=== PATIENT | female | born 1970 | race Caucasian/White ===

== ENCOUNTER 2020-09-13 08:02 | Inpatient (IN) | payer MEDICAID ==
[~2020-09-13] VITALS: Ht 175.3 cm; Wt 121.0 kg
[2020-09-13] MEDS ORDERED: PIPERACILLIN-TAZOB 3.375GM 100 ML IV ONE (08:45)
[2020-09-13] MEDS ORDERED: KETOROLAC TROMETH 30 MG/ML 1ML VIAL IV ONE (08:45)
[2020-09-13] MEDS ORDERED: SODIUM CHLORIDE 0.9% 1,000 ML IV ONE ×2 (08:45)
[2020-09-13 10:34] LABS: Basophils # (auto) 0.2 10 ^3/uL (0-0.2); Basophils % (auto) 0.7 % (0.0-2.0); Eosinophils # (auto) 0 10 ^3/uL (0-0.8); Hematocrit 46.6 % (36.0-46.0); Hemoglobin 15.2 g/dL (12.2-16.2); Lymphocytes # (auto) 0.6 10 ^3/uL (0.4-5.4); Lymphocytes % (auto) 2.7 % (10.0-50.0); Mean Corpuscular Hemoglobin 27.9 pg (28.0-32.0); Mean Corpuscular Hgb Conc. 32.7 g/dL (32.0-36.0); Mean Corpuscular Volume 85.2 fL (80.0-100.0); Monocytes # (auto) 1.2 10 ^3/uL (0-1.3); Monocytes % (auto) 5.5 % (0.0-12.0); Neutrophils # (auto) 19.2 10 ^3/uL (1.6-8.6); Neutrophils % (auto) 91.1 % (37.0-80.0); Nucleated Red Blood Cells % 0.2 %; Platelet Count (auto) 236 10^3/uL (140-450); Red Blood Cells 5.47 10^6/uL (4.0-5.20); Red Cell Distribution Width 16.4 % (11.8-14.3); White Blood Cell 21.1 10^3/uL (4.4-10.8)
[2020-09-13 10:54] LABS: Albumin 3.3 g/dL (3.4-5.0); Potassium 3.7 mmol/L (3.5-5.1)
[2020-09-13 10:59] LABS: BUN/Creatinine Ratio 10.7; Bilirubin, Total 1.9 mg/dL (0.2-1.0); Total Protein 7.6 g/dL (6.4-8.2)
[2020-09-13 11:17] LABS: Lactic Acid w/Reflex 2.8 mmol/L (0.4-2.0)
[2020-09-13] MEDS ORDERED: ACETAMINOPHEN 500 MG TAB PO ONE (11:45)
[2020-09-13 12:27] LABS: Urine Amorphous Crystal FEW /hpf (None Seen); Urine Bacteria NONE SEEN /hpf (None Seen); Urine Blood TRACE /uL (Negative); Urine Hyaline Cast FEW /lpf (0 - 2); Urine Mucus FEW (None Seen); Urine Specific Gravity 1.025 (1.001-1.035); Urine WBC 4 /hpf (0 - 5)
[2020-09-13] MEDS ORDERED: MORPHINE SULF INJ 2 MG/ML SYRINGE 1ML IV ONE (12:30)
[2020-09-13] MEDS ORDERED: VANCOMYCIN 1GM/250ML 250 ML IV ONE (12:30)
[2020-09-13] MEDS ORDERED: MORPHINE SULF INJ 2 MG/ML SYRINGE 1ML IV PRN (15:00)
[2020-09-13] MEDS ORDERED: DEXTROSE (50%) 50ML SYRG IV PRN (15:00)
[2020-09-13] MEDS ORDERED: MORPHINE SULF INJ 2 MG/ML SYRINGE 1ML IM PRN (15:00)
[2020-09-13] MEDS ORDERED: NITROGLYCERIN 0.4 MG SL TAB SL PRN (15:00)
[2020-09-13] MEDS: ACETAMINOPHEN 325 MG TAB PO PRN (16:38)
--- NOTE | 2020-09-13 17:23 | NUR ---
Telemetry admit from ER LUIS BYRD admitted to Telemetry unit after SBAR received. Patient oriented to DAVIDA BEAVER, RN primary RN, TELE unit, room 217, bed A, and unit policies regarding patient care and visiting hours. Patient now on continuous telemetry monitoring, tele box # 37 and telemetry reading on arrival to unit is [facility]. Patient placed on bedside oxygen, weighed by bedscale and encouraged to call if they need something. All questions and concerns addressed, patient verbalized understanding.
[2020-09-13] MEDS: ACCU-CHEK COMFORT CURVE STRIP VI SCH ×2 (17:38→21:41)
[2020-09-13] MEDS: MORPHINE SULF INJ 2 MG/ML SYRINGE 1ML IV PRN (17:42)
--- NOTE | 2020-09-13 17:42 | NUR ---
WOUND PHOTOS OBTAINED.
[2020-09-13 17:48] VITALS: BP 130/71
[2020-09-13] MEDS: InsuLIN REG 1unit/0.01ml Soln (100units/ml) SC SCH ×2 (17:48→21:44)
[2020-09-13] MEDS: PIPERACILLIN-TAZOB 3.375GM 100 ML IV SCH ×2 (18:35→23:38)
[2020-09-13] MEDS ORDERED: CARI350T23 PO (18:47)
[2020-09-13] MEDS ORDERED: INSU100I2 SC (18:47)
[2020-09-13] MEDS ORDERED: POTA10TA75 PO (18:47)
[2020-09-13] MEDS ORDERED: ASPI-318 PO (18:47)
[2020-09-13] MEDS ORDERED: FURO40TA4 PO (18:47)
[2020-09-13] MEDS ORDERED: ISO60SRT PO (18:47)
[2020-09-13] MEDS ORDERED: AMLO5TAB15 PO (18:47)
[2020-09-13] MEDS ORDERED: INSU1INJ19 SC (18:47)
[2020-09-13] MEDS ORDERED: OMEP-260 PO (18:47)
[2020-09-13] MEDS ORDERED: MET25T PO (18:47)
[2020-09-13] MEDS ORDERED: ATOR40TA52 PO (18:47)
[2020-09-13] MEDS ORDERED: HYDR-4798 PO (18:47)
[2020-09-13] MEDS ORDERED: AMLO10TA13 PO (18:47)
[2020-09-13] MEDS ORDERED: CLOP75TA41 PO (18:47)
[2020-09-13] MEDS ORDERED: FERR-20 PO (18:47)
[2020-09-13] MEDS ORDERED: CHOL1TAB42 PO (18:47)
[2020-09-13] MEDS ORDERED: LISI-646 PO (18:47)
[2020-09-13] MEDS ORDERED: NITR0.4S29 SL (18:47)
[2020-09-13] MEDS ORDERED: GLYB5TAB8 PO (18:47)
[2020-09-13] MEDS: NICOTINE 14 MG/24HR TOPICAL PATCH TD SCH (19:01)
--- NOTE | 2020-09-13 19:01 | NUR ---
CARE ENDORSED TO NOC RN.
[2020-09-13 19:23] LABS: INR 1.18 (0.9-1.15); Partial Thromboplastin Time 32.4 sec (23.0-31.2)
--- NOTE | 2020-09-13 19:30 | NUR ---
Opening Shift Note Assumed care of patient, awake and alert. A&Ox4. Patient laying in bed. No S/S of distress/SOB or pain. Safety measures maintained by keeping the bed locked in lowest position, 2 side rails up, personal items and call light within reach. Instructed on POC and to call for assist PRN, will continue to monitor for changes Q1hr and PRN.
[2020-09-13 22:55] VITALS: BP 129/76
[2020-09-14] MEDS: MORPHINE SULF INJ 2 MG/ML SYRINGE 1ML IV PRN ×5 (02:31→22:25)
[2020-09-14 05:25] VITALS: BP 104/61
[2020-09-14] MEDS: PIPERACILLIN-TAZOB 3.375GM 100 ML IV SCH ×4 (06:10→23:52)
[2020-09-14] MEDS: InsuLIN REG 1unit/0.01ml Soln (100units/ml) SC SCH ×4 (06:26→22:20)
[2020-09-14] MEDS: ACCU-CHEK COMFORT CURVE STRIP VI SCH ×4 (06:26→22:19)
--- NOTE | 2020-09-14 07:25 | NUR ---
Opening Shift Note Assumed care of patient, awake and alert. No S/S of distress/SOB or pain. Instructed on POC and to call for assistance PRN bed is locked and in lowest position bed rails up x2 , sitter is at bed side and call light is with in reach , will continue to monitor for changes Q1hr and PRN..
[2020-09-14 07:29] LABS: Basophils # (auto) 0.1 10 ^3/uL (0-0.2); Basophils % (auto) 0.6 % (0.0-2.0); Eosinophils # (auto) 0 10 ^3/uL (0-0.8); Eosinophils % (auto) 0.2 % (0.0-7.0); Hematocrit 38.6 % (36.0-46.0); Hemoglobin 12.8 g/dL (12.2-16.2); Lymphocytes # (auto) 0.7 10 ^3/uL (0.4-5.4); Lymphocytes % (auto) 4.6 % (10.0-50.0); Mean Corpuscular Hemoglobin 28.4 pg (28.0-32.0); Mean Corpuscular Hgb Conc. 33.2 g/dL (32.0-36.0); Mean Corpuscular Volume 85.6 fL (80.0-100.0); Monocytes # (auto) 0.8 10 ^3/uL (0-1.3); Monocytes % (auto) 5.3 % (0.0-12.0); Neutrophils # (auto) 13.8 10 ^3/uL (1.6-8.6); Neutrophils % (auto) 89.3 % (37.0-80.0); Nucleated Red Blood Cells % 0.1 %; Platelet Count (auto) 186 10^3/uL (140-450); Red Cell Distribution Width 16.3 % (11.8-14.3); White Blood Cell 15.5 10^3/uL (4.4-10.8)
[2020-09-14 07:39] LABS: Calcium 7.6 mg/dL (8.5-10.1); Potassium 3.6 mmol/L (3.5-5.1)
[2020-09-14 07:43] LABS: Albumin 2.4 g/dL (3.4-5.0); BUN/Creatinine Ratio 18.1
[2020-09-14 07:45] LABS: Bilirubin, Total 1.6 mg/dL (0.2-1.0); Total Protein 6.8 g/dL (6.4-8.2)
[2020-09-14 08:51] VITALS: BP 132/72
[2020-09-14] MEDS: NICOTINE 14 MG/24HR TOPICAL PATCH TD SCH (10:00)
--- NOTE | 2020-09-14 10:56 | NUR ---
WOUND CARE NOTE: Wound care in to see patient per wound care request regarding wounds that are noted present on admission. Bedside nurse took photograph of patient's wounds upon admission for reference. Patient is 50 years old female with admitting diagnosis of Sepsis, Leg Wounds. Patient is resting in bed in Rm. 217A. Patient's eyes are closed but she answers questions. She's self turning and repositioning and her Eugenio score is 20. Patient came in with open full thickness wounds with no measurable depth to Rt lateral foot/ankle (2x1.5cm) and Lt 5th toe (1.5x1cm). Lt 5th toe wound is red with pink lorri wound, no drainage/odor noted. Rt lateral foot wound is red with yellow hyperkeratotic skin to periwound and bright red surrounding skin. Minimal serous drainage noted, no odor noted. Patient's Rt Lower leg noted edematous and erythremic. Marked Rt lower leg edematous and erythremic site with marker. On reports, patient has had the Rt foot wound with redness and pain to Rt lower leg for few days. Patient reported that she has not seen a doctor for her RLE issue as "I jut get approved". Cleansed patient's Rt lateral foot and Lt 5th toe wounds with wound cleanser, patted dry with gauze, applied Thera honey gel to open wound. Covered Rt lateral foot/ankle wound with small Opti foam gentle dressing. Covered L 5th toe wound with Band aid. Patient tolerated well and denies any other wound. Patient has active podiatry consult. Bed in low position, call chen within reach, all safety precautions in placed. RECOMMENDATION: Nursing to continue with EOD/PRN dressing change to Rt lateral foot/ankle and Lt 5th toe wounds per MD order,Podiatry consult, redistribute pressure points with pillows, elevate edematous extremity on pillows, continue monitoring by wound care while patient is hospitalized. Addendum: 09/14/20 at 1534 by Li Abellar RN Amended: Links added.
[2020-09-14] MEDS: VANCOMYCIN 1GM/250ML 250 ML IV SCH (11:14)
[2020-09-14] MEDS: ACETAMINOPHEN 325 MG TAB PO PRN ×2 (12:31→21:37)
[2020-09-14 13:00] VITALS: BP 130/76
[2020-09-14] MEDS ORDERED: INSULIN LANTUS (GLARGINE) 1 /0.01ml (100units/ml) SC SCH (15:30)
[2020-09-14 16:16] VITALS: BP 128/70
[2020-09-14] MEDS: PANTOPRAZOLE 40 MG/10 ML VIAL INJ IV SCH (17:37)
[2020-09-14] MEDS: ONDANSETRON HCL 4 MG/2 ML VIAL IV PRN (18:55)
--- NOTE | 2020-09-14 19:40 | NUR ---
Opening Shift Note Assumed care of patient. Patient sleeping in bed. No S/S of distress/SOB or pain. Safety measures maintained by keeping the bed locked in lowest position, 2 side rails up, personal items and call light within reach. Instructed on POC and to call for assist PRN, will continue to monitor for changes Q1hr and PRN.
[2020-09-14 22:00] VITALS: BP 154/88
[2020-09-14] MEDS: CLOTRIMAZOLE 1 % CREAM 15GM TOP SCH (22:19)
[2020-09-15] MEDS: MORPHINE SULF INJ 2 MG/ML SYRINGE 1ML IV PRN ×4 (03:59→20:46)
[2020-09-15 05:00] VITALS: BP 123/73
[2020-09-15] MEDS: PIPERACILLIN-TAZOB 3.375GM 100 ML IV SCH ×3 (05:42→17:06)
[2020-09-15] MEDS: ACCU-CHEK COMFORT CURVE STRIP VI SCH ×4 (06:21→22:00)
[2020-09-15] MEDS: InsuLIN REG 1unit/0.01ml Soln (100units/ml) SC SCH ×4 (06:26→22:28)
[2020-09-15 08:30] VITALS: BP 121/67
[2020-09-15] MEDS: PANTOPRAZOLE 40 MG/10 ML VIAL INJ IV SCH (09:34)
[2020-09-15] MEDS: VANCOMYCIN 1GM/250ML 250 ML IV SCH (09:34)
[2020-09-15] MEDS: CLOTRIMAZOLE 1 % CREAM 15GM TOP SCH ×2 (09:35→22:00)
[2020-09-15] MEDS ORDERED: CLOT1CRE56 TOP (09:55)
[2020-09-15] MEDS ORDERED: CARISOPRODOL 350 MG TAB PO PRN (10:00)
[2020-09-15] MEDS ORDERED: CLOPIDOGREL BISULFATE 75 MG TAB PO SCH (10:00)
[2020-09-15 10:05] LABS: BUN/Creatinine Ratio 16.7; Calcium 8.3 mg/dL (8.5-10.1); Potassium 3.7 mmol/L (3.5-5.1)
[2020-09-15] MEDS: NICOTINE 14 MG/24HR TOPICAL PATCH TD SCH (10:09)
[2020-09-15] MEDS ORDERED: CHOLECALCIFEROL (VITD3) 1,000UNIT=25mCg TAB PO ONE (10:30)
[2020-09-15] MEDS ORDERED: CLOPIDOGREL BISULFATE 75 MG TAB PO ONE (10:30)
[2020-09-15] MEDS ORDERED: FERROUS SULFATE 325 MG TAB PO ONE (10:30)
[2020-09-15 10:42] LABS: Basophils # (auto) 0 10 ^3/uL (0-0.2); Basophils % (auto) 0.4 % (0.0-2.0); Eosinophils # (auto) 0.1 10 ^3/uL (0-0.8); Eosinophils % (auto) 1.1 % (0.0-7.0); Hemoglobin 12.2 g/dL (12.2-16.2); Lymphocytes # (auto) 0.7 10 ^3/uL (0.4-5.4); Lymphocytes % (auto) 6.3 % (10.0-50.0); Mean Corpuscular Hemoglobin 27.8 pg (28.0-32.0); Mean Corpuscular Hgb Conc. 32.2 g/dL (32.0-36.0); Mean Corpuscular Volume 86.5 fL (80.0-100.0); Monocytes # (auto) 0.7 10 ^3/uL (0-1.3); Monocytes % (auto) 6.7 % (0.0-12.0); Neutrophils # (auto) 9.3 10 ^3/uL (1.6-8.6); Neutrophils % (auto) 85.5 % (37.0-80.0); Nucleated Red Blood Cells % 0.1 %; Platelet Count (auto) 174 10^3/uL (140-450); Red Blood Cells 4.39 10^6/uL (4.0-5.20); Red Cell Distribution Width 16.7 % (11.8-14.3); White Blood Cell 10.9 10^3/uL (4.4-10.8)
[2020-09-15] MEDS: METOPROLOL TARTRATE 25 MG TAB PO SCH ×2 (10:57→21:47)
[2020-09-15] MEDS: POTASSIUM CHL 10 Meq TABLET PO SCH (10:57)
[2020-09-15] MEDS: FUROSEMIDE 40 MG TAB PO SCH (10:57)
[2020-09-15] MEDS: INSULIN LANTUS (GLARGINE) 1 /0.01ml (100units/ml) SC SCH (11:44)
[2020-09-15 12:30] VITALS: BP 99/55
[2020-09-15] MEDS: HYDROcodone-ACET 10/325MG TAB PO PRN (13:32)
--- NOTE | 2020-09-15 14:45 | NUR ---
Cancelling MRI Crystal Harkins discussing POC with Dr. Buenrostro. Per Dr. Buenrostro, patient does not need MRI. Received orders to cancel both orders. Per Dr. Buenrostro, patient is cleared for discharge.
--- NOTE | 2020-09-15 16:30 | NUR ---
Infectious control consult Dr. Blount at bedside evaluating patient. No new orders received.
--- NOTE | 2020-09-15 16:45 | NUR ---
Evelina at bedside Dr. Ramesh at bedside evaluating patient. Per MD, he does not think patient needs surgery and is not concerned about compartment syndrome. No new orders received.
[2020-09-15 17:00] VITALS: BP 135/77
[2020-09-15] MEDS: ATORVASTATIN 20 MG TAB PO SCH (17:06)
[2020-09-15] MEDS ORDERED: LORazepam 2MG/ML-1ML VIAL IV ONE (17:30)
[2020-09-15] MEDS: ONDANSETRON HCL 4 MG/2 ML VIAL IV PRN (19:51)
[2020-09-15 22:00] VITALS: BP 138/79
--- NOTE | 2020-09-15 22:45 | NUR ---
CHEST PAIN PATIENT C/O CHEST PAIN ON THE LEFT SIDE. PATIENT WAS ASLEEP WHEN THE CHEST PAIN WOKE HER UP. I IMMEDIATELY DID AN EKG WHILE THE OCCASIONAL BABYSITTER GOT VITALS. I ADMINISTERED NITRO S.L. AFTER CHECKING IN 5 MINUTES THE PATIENT SAID HER PAIN WAS COMPLETELY GONE. I TRIED CALLING DR. CHAIDEZ AND REACHED DR. GUILLEN. HE REQUESTED I SEND HIM PICTURE OF THE EKG. I SENT IT AND HE REQUESTED I TAKE ANOTHER EKG NOW THAT THE PAIN HAS SUBSIDED. I ALSO SENT HIM THE NEW EKG. DR GUILLEN ORDERED TROPONINS STAT AND AGAIN IN [address] GUILLEN ORDERED A CONSULT WITH DR. GOODMAN AND AN ECHO FOR THE AM.
[2020-09-16 05:00] VITALS: BP 118/56
[2020-09-16] MEDS: ACCU-CHEK COMFORT CURVE STRIP VI SCH ×3 (06:20→18:13)
[2020-09-16] MEDS: InsuLIN REG 1unit/0.01ml Soln (100units/ml) SC SCH ×3 (06:23→18:14)
[2020-09-16] MEDS: HYDROcodone-ACET 10/325MG TAB PO PRN (06:27)
--- NOTE | 2020-09-16 06:36 | NUR ---
LOW O2 PATIENT INSISTED ON GOING OUTSIDE TO SMOKE. WHEN SHE RETURNED HER O2 WAS 91% NASAL CANNULA IS ON AT 3 Lt /MIN. PATIENT HAS RECEIVED NORCO FOR HEAD PAIN.AT THIS TIME PATIENT IS RESTING COMFORTABLY IN BED.
[2020-09-16 07:15] LABS: Basophils # (auto) 0.1 10 ^3/uL (0-0.2); Basophils % (auto) 0.7 % (0.0-2.0); Eosinophils # (auto) 0.1 10 ^3/uL (0-0.8); Eosinophils % (auto) 0.8 % (0.0-7.0); Hematocrit 39.2 % (36.0-46.0); Lymphocytes # (auto) 0.8 10 ^3/uL (0.4-5.4); Lymphocytes % (auto) 9.2 % (10.0-50.0); Mean Corpuscular Hemoglobin 28.7 pg (28.0-32.0); Mean Corpuscular Hgb Conc. 33.2 g/dL (32.0-36.0); Mean Corpuscular Volume 86.5 fL (80.0-100.0); Monocytes # (auto) 0.9 10 ^3/uL (0-1.3); Monocytes % (auto) 10.1 % (0.0-12.0); Neutrophils # (auto) 7.3 10 ^3/uL (1.6-8.6); Neutrophils % (auto) 79.2 % (37.0-80.0); Nucleated Red Blood Cells % 0.1 %; Platelet Count (auto) 209 10^3/uL (140-450); Red Blood Cells 4.53 10^6/uL (4.0-5.20); Red Cell Distribution Width 16.1 % (11.8-14.3); White Blood Cell 9.2 10^3/uL (4.4-10.8)
--- NOTE | 2020-09-16 07:20 | NUR ---
Opening Shift Note Assumed care of patient AOx4. Patient laying in bed. No S/S of distress/SOB or pain. Safety measures maintained by keeping the bed locked in lowest position, 2 side rails up, personal items and call light within reach. Instructed on POC and to call for assist PRN, will continue to monitor for changes Q1hr and PRN.
[2020-09-16 07:37] LABS: Chloride 95 mmol/L (98-107); Potassium 4.5 mmol/L (3.5-5.1); Sodium 131 mmol/L (136-145)
[2020-09-16 07:55] LABS: Anion Gap 8 (5-15); Blood Urea Nitrogen 16 mg/dL (7-18); Calcium 9.3 mg/dL (8.5-10.1); Carbon Dioxide 28 mmol/L (21-32); GFR African American 98 mL/min; GFR Non-African American 81 mL/min; Glucose 229 mg/dL (74-106)
[2020-09-16] MEDS ORDERED: FERROUS SULFATE 325 MG TAB PO SCH (08:00)
[2020-09-16 09:00] VITALS: BP 139/82
[2020-09-16] MEDS: FUROSEMIDE 40 MG TAB PO SCH (09:36)
[2020-09-16] MEDS: POTASSIUM CHL 10 Meq TABLET PO SCH (09:37)
[2020-09-16] MEDS: VANCOMYCIN 1GM/250ML 250 ML IV SCH (09:37)
[2020-09-16] MEDS: PANTOPRAZOLE 40 MG/10 ML VIAL INJ IV SCH (09:37)
[2020-09-16] MEDS: METOPROLOL TARTRATE 25 MG TAB PO SCH (09:37)
[2020-09-16] MEDS: NICOTINE 14 MG/24HR TOPICAL PATCH TD SCH (09:40)
[2020-09-16] MEDS: CLOTRIMAZOLE 1 % CREAM 15GM TOP SCH (10:00)
[2020-09-16] MEDS ORDERED: CHOLECALCIFEROL (VITD3) 1,000UNIT=25mCg TAB PO SCH (10:00)
[2020-09-16] MEDS ORDERED: CLOPIDOGREL BISULFATE 75 MG TAB PO SCH (10:00)
[2020-09-16] MEDS: INSULIN LANTUS (GLARGINE) 1 /0.01ml (100units/ml) SC SCH (10:04)
--- NOTE | 2020-09-16 10:35 | NUR ---
Assessment Patient is a 50-year-old female who is alert and oriented. Prior to [place] [address] and functioned with assistance. Per patient she has a walker for home use. Per patient she will return home to her prior living arrangements post discharge and [facility] will transport her home. Per patient she feels safe returning home. Advised patient there is a social service consult to resume home health with [facility] for wound care. Patient would like to resume care with [facility]. Clinical information was faxed to [facility] and [facility]. Per Maurice with [facility] they will continue seeing patient within 24-48hrs upon d/c day. Obtain authorization from [facility] [id number]. Informed patient she has the right to participate in all discharge planning. Patient verbalized understanding and agreed to discharge plan. Addendum: 09/16/20 at 1042 by CASSY WILLOUGHBY Amended: Links added.
--- NOTE | 2020-09-16 11:31 | NUR ---
Nutrition Assessment Est Energy needs 6083-7412 kcal (11-14 kcal/kg BW 121kg) Est protein needs 66-79g (1-1.2g/kg IBW 66kg) Will reassess prn Addendum: 09/16/[address] Amended: Links added.
[2020-09-16] MEDS: MORPHINE SULF INJ 2 MG/ML SYRINGE 1ML IV PRN (11:39)
[2020-09-16 12:26] VITALS: BP 102/58
--- NOTE | 2020-09-16 16:22 | NUR ---
D/C Planning Per social service consult for transportation. Faxed transportation form request to [facility] requesting for a 6:30pm via [employer]. Transportation has been arranged with [employer] .
--- NOTE | 2020-09-16 16:45 | NUR ---
Balderas catheter DC'd Patient getting discharged today. Balderas DC'd with clean technique following deflation of balloon. Patient tolerated well with no complaints of pain. Continue care.
[2020-09-16 16:53] VITALS: BP 102/58
[2020-09-16 17:02] VITALS: BP 124/67
[2020-09-16] MEDS ORDERED: VANCOMYCIN 1GM/250ML 250 ML IV SCH (18:00)
[2020-09-16] MEDS: ATORVASTATIN 20 MG TAB PO SCH (18:32)
--- NOTE | 2020-09-16 18:38 | NUR ---
Wound care/ DC pictures taken Wound care performed per MD orders at this time and DC wound pictures taken. Patient tolerated well.
--- NOTE | 2020-09-16 18:50 | NUR ---
DISCHARGE Discharge instructions given as ordered. Encourage to follow up with PMD as instructed. Appointment information provided to patient. All questions and concerns addressed. Patient verbalized understanding. IV removed with catheter intact, pressure dressing applied. Telemetry unit returned to ICU. Patient transported home by [address] [employer] [facility]. No distress noted at time of departure.
== END 2020-09-16 18:50 | disposition home health service (06) | DRG 720 ==
LOC: EDBD 08:02 → ER 08:02 → TELE 08:03 → TELE-CENTR 17:34
PROVIDERS: ADMIT Internal Medicine; ATTEND Internal Medicine
DX: A41.9 Sepsis, unspecified organism (principal); I10 Essential (primary) hypertension; E86.0 Dehydration; B95.8 Unspecified staphylococcus as the cause of diseases classified elsewhere; E11.621 Type 2 diabetes mellitus with foot ulcer; B95.1 Streptococcus, group B, as the cause of diseases classified elsewhere; E66.01 Morbid (severe) obesity due to excess calories; F17.210 Nicotine dependence, cigarettes, uncomplicated; G89.29 Other chronic pain; L97.519 Non-pressure chronic ulcer of other part of right foot with unspecified severity; L03.115 Cellulitis of right lower limb; I25.10 Atherosclerotic heart disease of native coronary artery without angina pectoris; J96.11 Chronic respiratory failure with hypoxia; L97.529 Non-pressure chronic ulcer of other part of left foot with unspecified severity; Z68.39 Body mass index [BMI] 39.0-39.9, adult; Z79.4 Long term (current) use of insulin; Z82.49 Family history of ischemic heart disease and other diseases of the circulatory system; Z86.73 Personal history of transient ischemic attack (TIA), and cerebral infarction without residual deficits; Z83.3 Family history of diabetes mellitus; B35.3 Tinea pedis
CPT/HCPCS: 36415; 51702; 71045; 73610; 73630; 73718; 80048; 80053; 80202; 81001; 82962; 83036; 83605; 84484; 85025; 85610; 85730; 87040; 87077; 87186; 87205; 93005; 93926; 93971; 96361; 96365; 96367; 96375; C9113; G0378; J1815; J1885; J2405; J2543

== ENCOUNTER 2020-10-02 21:47 | Inpatient (IN) | payer MEDICAID ==
[~2020-10-02] VITALS: Ht 175.3 cm; Wt 115.8 kg
[~2020-10-02 21:47] MED LIST: AMLO10TA13 PO; ASPI-318 PO; ATOR40TA52 PO; CARI350T23 PO; CHOL1TAB42 PO; CLOP75TA41 PO; CLOT1CRE56 TOP; FERR-20 PO; FURO40TA4 PO; GLYB5TAB8 PO; HYDR-4798 PO; INSU100I2 SC; INSU1INJ19 SC; ISO60SRT PO; LISI-646 PO; MET25T PO; NITR0.4S29 SL; OMEP-260 PO; POTA10TA75 PO
[2020-10-02 23:34] LABS: Alanine Aminotransferase 22 U/L (13-56); Albumin 3.2 g/dL (3.4-5.0); Anion Gap 7 (5-15); Aspartate Aminotransferase 21 U/L (15-37); BUN/Creatinine Ratio 14.9; Basophils # (auto) 0.1 10 ^3/uL (0-0.2); Basophils % (auto) 1.2 % (0.0-2.0); Blood Urea Nitrogen 13 mg/dL (7-18); Calcium 9.3 mg/dL (8.5-10.1); Carbon Dioxide 28 mmol/L (21-32); Chloride 94 mmol/L (98-107); Eosinophils # (auto) 0.2 10 ^3/uL (0-0.8); Eosinophils % (auto) 1.7 % (0.0-7.0); GFR African American 89 mL/min; GFR Non-African American 73 mL/min; Glucose 320 mg/dL (74-106); Hematocrit 43.9 % (36.0-46.0); Hemoglobin 14.4 g/dL (12.2-16.2); Lymphocytes # (auto) 1.5 10 ^3/uL (0.4-5.4); Lymphocytes % (auto) 14.7 % (10.0-50.0); Mean Corpuscular Hemoglobin 27.1 pg (28.0-32.0); Mean Corpuscular Hgb Conc. 32.7 g/dL (32.0-36.0); Mean Corpuscular Volume 82.9 fL (80.0-100.0); Monocytes # (auto) 0.8 10 ^3/uL (0-1.3); Monocytes % (auto) 7.6 % (0.0-12.0); Neutrophils # (auto) 7.5 10 ^3/uL (1.6-8.6); Neutrophils % (auto) 74.8 % (37.0-80.0); Nucleated Red Blood Cells % 0.3 %; Platelet Count (auto) 496 10^3/uL (140-450); Potassium 4.6 mmol/L (3.5-5.1); Red Blood Cells 5.29 10^6/uL (4.0-5.20); Red Cell Distribution Width 15.3 % (11.8-14.3); Sodium 129 mmol/L (136-145)
[2020-10-02 23:37] LABS: Alkaline Phosphatase 209 U/L (45-117); Bilirubin, Total 0.4 mg/dL (0.2-1.0); Total Protein 9.3 g/dL (6.4-8.2)
[2020-10-03] MEDS ORDERED: MORPHINE SULFATE 4 MG/ML SYR/VIAL IV ONE (00:15)
[2020-10-03] MEDS ORDERED: ONDANSETRON HCL 4 MG/2 ML VIAL IV ONE (00:15)
[2020-10-03] MEDS ORDERED: cefTRIAXone 1GM/50ML D5W 50 ML IV ONE (00:15)
[2020-10-03] MEDS ORDERED: CLINDAMYCIN 900MG IV 50 ML IV ONE (00:15)
[2020-10-03 01:12] LABS: Lactic Acid w/Reflex 2.4 mmol/L (0.4-2.0)
[2020-10-03] MEDS: SODIUM CHLORIDE 0.9% 1,000 ML IV SCH ×3 (02:00→22:39)
[2020-10-03] MEDS ORDERED: NITROGLYCERIN 0.4 MG SL TAB SL PRN (02:00)
[2020-10-03] MEDS ORDERED: DEXTROSE (50%) 50ML SYRG IV ONE ×2 (02:00→02:45)
[2020-10-03] MEDS ORDERED: DEXTROSE (50%) 50ML SYRG IV PRN ×3 (02:30→12:15)
[2020-10-03] MEDS: CLINDAMYCIN 900MG IV 50 ML IV SCH ×3 (06:00→22:39)
[2020-10-03 06:39] LABS: Basophils # (auto) 0.1 10 ^3/uL (0-0.2); Eosinophils # (auto) 0.2 10 ^3/uL (0-0.8); Lymphocytes # (auto) 1.2 10 ^3/uL (0.4-5.4); Monocytes # (auto) 0.6 10 ^3/uL (0-1.3); Red Cell Distribution Width 15.7 % (11.8-14.3)
[2020-10-03 06:41] LABS: Basophils % (auto) 1.5 % (0.0-2.0); Eosinophils % (auto) 2.9 % (0.0-7.0); Hematocrit 38.5 % (36.0-46.0); Hemoglobin 12.7 g/dL (12.2-16.2); Lymphocytes % (auto) 19.9 % (10.0-50.0); Mean Corpuscular Hemoglobin 27.6 pg (28.0-32.0); Mean Corpuscular Hgb Conc. 33.1 g/dL (32.0-36.0); Mean Corpuscular Volume 83.5 fL (80.0-100.0); Monocytes % (auto) 10.1 % (0.0-12.0); Neutrophils # (auto) 4.1 10 ^3/uL (1.6-8.6); Neutrophils % (auto) 65.6 % (37.0-80.0); Platelet Count (auto) 455 10^3/uL (140-450); Red Blood Cells 4.61 10^6/uL (4.0-5.20); White Blood Cell 6.3 10^3/uL (4.4-10.8)
[2020-10-03 06:51] LABS: Albumin 2.4 g/dL (3.4-5.0); Calcium 8.6 mg/dL (8.5-10.1); Potassium 3.9 mmol/L (3.5-5.1)
[2020-10-03] MEDS ORDERED: ACCU-CHEK COMFORT CURVE STRIP VI ONE (07:00)
[2020-10-03] MEDS ORDERED: InsuLIN REG 1unit/0.01ml Soln (100units/ml) SC ONE (07:00)
[2020-10-03 07:13] LABS: BUN/Creatinine Ratio 17.5; Bilirubin, Total 0.3 mg/dL (0.2-1.0); CRP High Sensitivity 2.3 mg/dL (< 0.3); Total Protein 7.4 g/dL (6.4-8.2)
[2020-10-03 08:14] LABS: Urine Bacteria FEW /hpf (None Seen); Urine Blood TRACE /uL (Negative); Urine Mucus FEW (None Seen); Urine WBC 173 /hpf (0 - 5); Urine WBC Clumps PRESENT /hpf (None Seen)
[2020-10-03 08:30] VITALS: BP 152/91
[2020-10-03] MEDS: ENOXAPARIN SOD 40 MG/0.4 ML SYRINGE SC SCH (10:00)
[2020-10-03] MEDS: levoFLOXacin 500MG 100 ML IV SCH (10:17)
[2020-10-03] MEDS ORDERED: HYDROcodone-ACET 5/325MG TAB PO PRN (11:00)
[2020-10-03] MEDS ORDERED: PROMETHAZINE HCL 25 MG/ML 1ML IV PRN (11:00)
[2020-10-03] MEDS ORDERED: ACETAMINOPHEN 325 MG TAB PO PRN (11:00)
[2020-10-03] MEDS: MORPHINE SULF INJ 2 MG/ML SYRINGE 1ML IV PRN ×3 (11:44→22:41)
[2020-10-03 11:47] LABS: Alcohol, Urine < 3.0 mg/dL (0-10); Amphetamine Screen, Urine POSITIVE (NEGATIVE); Barbiturate Scree,Urine NEGATIVE (NEGATIVE); Benzodiazephine Screen, Urine NEGATIVE (NEGATIVE); Cannabinoid Screen, Urine NEGATIVE (NEGATIVE); Cocaine Screen, Urine NEGATIVE (NEGATIVE); Opiate Scree,Urine POSITIVE (NEGATIVE); Phencyclidine Screen, Urine NEGATIVE (NEGATIVE)
[2020-10-03 12:00] VITALS: BP 152/90
[2020-10-03] MEDS ORDERED: CARISOPRODOL 350 MG TAB PO PRN (12:00)
[2020-10-03] MEDS ORDERED: ASPirin-EC 81 mg tab PO SCH (12:15)
[2020-10-03] MEDS ORDERED: POTASSIUM CHL 10 Meq TABLET PO ONE (12:15)
[2020-10-03] MEDS ORDERED: FUROSEMIDE 40 MG TAB PO ONE (12:15)
[2020-10-03] MEDS ORDERED: CLOPIDOGREL BISULFATE 75 MG TAB PO ONE (12:15)
[2020-10-03] MEDS ORDERED: FAMOTIDINE 20 MG TAB PO ONE (12:15)
[2020-10-03] MEDS ORDERED: LISINOPRIL 20 MG TAB PO ONE (12:15)
[2020-10-03] MEDS ORDERED: OMEPRAZOLE 20MG/10ML ORAL SUSP PO ONE (12:15)
[2020-10-03] MEDS ORDERED: METOPROLOL TARTRATE 25 MG TAB PO ONE (12:15)
[2020-10-03 13:00] VITALS: BP 183/100
[2020-10-03 17:00] VITALS: BP 169/102
[2020-10-03] MEDS ORDERED: InsuLIN REG 1unit/0.01ml Soln (100units/ml) SC SCH (17:00)
[2020-10-03] MEDS ORDERED: ACCU-CHEK COMFORT CURVE STRIP VI SCH (17:00)
[2020-10-03] MEDS: ACCU-CHEK COMFORT CURVE STRIP VI SCH ×2 (17:08→22:39)
[2020-10-03] MEDS: InsuLIN REG 1unit/0.01ml Soln (100units/ml) SC SCH ×2 (17:08→22:51)
[2020-10-03] MEDS ORDERED: cloNIDine HCL 0.1 MG TAB PO ONE (18:30)
[2020-10-03] MEDS: DAKINS QUARTER STR 0.125% (NaHypochlorite) 473 ML TOPICAL SOL TOP SCH (22:39)
[2020-10-03] MEDS: ATORVASTATIN 20 MG TAB PO SCH (22:39)
[2020-10-03] MEDS: METOPROLOL TARTRATE 25 MG TAB PO SCH (22:41)
[2020-10-03] MEDS: INSULIN LANTUS (GLARGINE) 1 /0.01ml (100units/ml) SC SCH (22:52)
[2020-10-04 01:08] VITALS: BP 166/105
[2020-10-04] MEDS: MORPHINE SULF INJ 2 MG/ML SYRINGE 1ML IV PRN ×3 (02:50→10:42)
[2020-10-04] MEDS: CLINDAMYCIN 900MG IV 50 ML IV SCH ×3 (06:03→21:53)
[2020-10-04] MEDS: ACCU-CHEK COMFORT CURVE STRIP VI SCH ×4 (06:03→21:54)
[2020-10-04 06:15] VITALS: BP 135/85
[2020-10-04] MEDS: InsuLIN REG 1unit/0.01ml Soln (100units/ml) SC SCH ×4 (06:30→23:12)
[2020-10-04] MEDS: INSULIN LANTUS (GLARGINE) 1 /0.01ml (100units/ml) SC SCH ×2 (06:30→23:12)
[2020-10-04 07:13] LABS: Basophils # (auto) 0.1 10 ^3/uL (0-0.2); Basophils % (auto) 1.7 % (0.0-2.0); Eosinophils # (auto) 0.2 10 ^3/uL (0-0.8); Eosinophils % (auto) 4.2 % (0.0-7.0); Hematocrit 38.3 % (36.0-46.0); Hemoglobin 12.8 g/dL (12.2-16.2); Lymphocytes # (auto) 1.4 10 ^3/uL (0.4-5.4); Lymphocytes % (auto) 24.9 % (10.0-50.0); Mean Corpuscular Hemoglobin 27.8 pg (28.0-32.0); Mean Corpuscular Hgb Conc. 33.4 g/dL (32.0-36.0); Mean Corpuscular Volume 83.2 fL (80.0-100.0); Monocytes # (auto) 0.5 10 ^3/uL (0-1.3); Monocytes % (auto) 9.7 % (0.0-12.0); Neutrophils # (auto) 3.3 10 ^3/uL (1.6-8.6); Neutrophils % (auto) 59.5 % (37.0-80.0); Nucleated Red Blood Cells % 0.1 %; Platelet Count (auto) 435 10^3/uL (140-450); Red Blood Cells 4.61 10^6/uL (4.0-5.20); Red Cell Distribution Width 15.4 % (11.8-14.3); White Blood Cell 5.6 10^3/uL (4.4-10.8)
[2020-10-04 07:16] LABS: INR 1.07 (0.9-1.15); Partial Thromboplastin Time 31.9 sec (23.0-31.2)
[2020-10-04 07:17] LABS: BUN/Creatinine Ratio 17.1; Calcium 8.7 mg/dL (8.5-10.1)
[2020-10-04 09:00] VITALS: BP 157/86
[2020-10-04] MEDS: SODIUM CHLORIDE 0.9% 1,000 ML IV SCH ×2 (09:32→19:04)
[2020-10-04] MEDS: levoFLOXacin 500MG 100 ML IV SCH (09:33)
[2020-10-04] MEDS: ASPirin-EC 81 mg tab PO SCH (09:33)
[2020-10-04] MEDS: POTASSIUM CHL 10 Meq TABLET PO SCH (09:34)
[2020-10-04] MEDS: ISOSORBIDE MONONITRATE ER 60 MG TAB PO SCH (09:34)
[2020-10-04] MEDS: FUROSEMIDE 40 MG TAB PO SCH (09:34)
[2020-10-04] MEDS: CLOPIDOGREL BISULFATE 75 MG TAB PO SCH (09:35)
[2020-10-04] MEDS: FAMOTIDINE 20 MG TAB PO SCH (09:35)
[2020-10-04] MEDS: OMEPRAZOLE 20MG/10ML ORAL SUSP PO SCH (09:36)
[2020-10-04] MEDS: LISINOPRIL 20 MG TAB PO SCH (09:36)
[2020-10-04] MEDS: ENOXAPARIN SOD 40 MG/0.4 ML SYRINGE SC SCH (09:37)
[2020-10-04] MEDS: METOPROLOL TARTRATE 25 MG TAB PO SCH ×2 (09:37→21:56)
[2020-10-04] MEDS ORDERED: CLOPIDOGREL BISULFATE 75 MG TAB PO SCH (10:00)
[2020-10-04] MEDS ORDERED: FUROSEMIDE 40 MG TAB PO SCH (10:00)
[2020-10-04] MEDS ORDERED: ASPirin-EC 81 mg tab PO SCH (10:00)
[2020-10-04] MEDS: DAKINS QUARTER STR 0.125% (NaHypochlorite) 473 ML TOPICAL SOL TOP SCH ×2 (10:06→21:54)
[2020-10-04 13:00] VITALS: BP 130/75
[2020-10-04 17:00] VITALS: BP 151/95
[2020-10-04] MEDS: HYDROcodone-ACET 10/325MG TAB PO PRN (19:59)
[2020-10-04] MEDS: ATORVASTATIN 20 MG TAB PO SCH (21:54)
[2020-10-04 22:04] VITALS: BP 147/83
[2020-10-05] MEDS: MORPHINE SULF INJ 2 MG/ML SYRINGE 1ML IV PRN ×4 (02:23→18:22)
[2020-10-05 05:32] VITALS: BP 159/92
[2020-10-05] MEDS: CLINDAMYCIN 900MG IV 50 ML IV SCH ×3 (06:16→23:55)
[2020-10-05] MEDS: InsuLIN REG 1unit/0.01ml Soln (100units/ml) SC SCH ×4 (06:48→22:00)
[2020-10-05] MEDS: INSULIN LANTUS (GLARGINE) 1 /0.01ml (100units/ml) SC SCH (06:49)
[2020-10-05] MEDS: ACCU-CHEK COMFORT CURVE STRIP VI SCH ×4 (06:49→22:00)
[2020-10-05 06:53] VITALS: BP 147/74
[2020-10-05 09:00] VITALS: BP 158/82
[2020-10-05] MEDS: CLOPIDOGREL BISULFATE 75 MG TAB PO SCH (10:00)
[2020-10-05] MEDS: ENOXAPARIN SOD 40 MG/0.4 ML SYRINGE SC SCH (10:00)
[2020-10-05] MEDS: POTASSIUM CHL 10 Meq TABLET PO SCH (10:07)
[2020-10-05] MEDS: ISOSORBIDE MONONITRATE ER 60 MG TAB PO SCH (10:08)
[2020-10-05] MEDS: FUROSEMIDE 40 MG TAB PO SCH (10:08)
[2020-10-05] MEDS: METOPROLOL TARTRATE 25 MG TAB PO SCH ×2 (10:08→23:56)
[2020-10-05] MEDS: ASPirin-EC 81 mg tab PO SCH (10:08)
[2020-10-05] MEDS: levoFLOXacin 500MG 100 ML IV SCH (10:09)
[2020-10-05] MEDS: FAMOTIDINE 20 MG TAB PO SCH (10:09)
[2020-10-05] MEDS: OMEPRAZOLE 20MG/10ML ORAL SUSP PO SCH (10:09)
[2020-10-05] MEDS: LISINOPRIL 20 MG TAB PO SCH (10:09)
[2020-10-05] MEDS ORDERED: INSULIN LANTUS (GLARGINE) 1 /0.01ml (100units/ml) SC SCH ×2 (11:00→22:00)
[2020-10-05] MEDS ORDERED: INSULIN LANTUS (GLARGINE) 1 /0.01ml (100units/ml) SC ONE (11:15)
[2020-10-05 12:37] LABS: Basophils # (auto) 0.1 10 ^3/uL (0-0.2); Basophils % (auto) 1.3 % (0.0-2.0); Eosinophils # (auto) 0.2 10 ^3/uL (0-0.8); Eosinophils % (auto) 3.2 % (0.0-7.0); Hematocrit 40.1 % (36.0-46.0); Hemoglobin 13.4 g/dL (12.2-16.2); Lymphocytes # (auto) 1.5 10 ^3/uL (0.4-5.4); Lymphocytes % (auto) 23.4 % (10.0-50.0); Mean Corpuscular Hemoglobin 27.5 pg (28.0-32.0); Mean Corpuscular Hgb Conc. 33.3 g/dL (32.0-36.0); Mean Corpuscular Volume 82.4 fL (80.0-100.0); Monocytes # (auto) 0.6 10 ^3/uL (0-1.3); Monocytes % (auto) 9.1 % (0.0-12.0); Neutrophils # (auto) 4.1 10 ^3/uL (1.6-8.6); Nucleated Red Blood Cells % 0.1 %; Platelet Count (auto) 441 10^3/uL (140-450); Red Blood Cells 4.87 10^6/uL (4.0-5.20); Red Cell Distribution Width 15.6 % (11.8-14.3); White Blood Cell 6.5 10^3/uL (4.4-10.8)
[2020-10-05 12:48] LABS: Potassium 4.3 mmol/L (3.5-5.1)
[2020-10-05 12:52] LABS: BUN/Creatinine Ratio 16.7; Calcium 9.1 mg/dL (8.5-10.1)
[2020-10-05 13:00] VITALS: BP 125/76
[2020-10-05] MEDS: DAKINS QUARTER STR 0.125% (NaHypochlorite) 473 ML TOPICAL SOL TOP SCH ×2 (14:17→23:57)
[2020-10-05] MEDS: SODIUM CHLORIDE 0.9% 1,000 ML IV SCH ×2 (14:20→23:57)
[2020-10-05] MEDS: HYDROcodone-ACET 10/325MG TAB PO PRN (20:08)
[2020-10-05 22:00] VITALS: BP 156/78
[2020-10-05] MEDS: ATORVASTATIN 20 MG TAB PO SCH (23:55)
[2020-10-05] MEDS: CLOTRIMAZOLE 1 % CREAM 15GM TOP SCH (23:57)
[2020-10-06] MEDS: INSULIN LANTUS (GLARGINE) 1 /0.01ml (100units/ml) SC SCH ×3 (00:37→22:25)
[2020-10-06] MEDS: ACCU-CHEK COMFORT CURVE STRIP VI SCH ×4 (05:50→22:23)
[2020-10-06] MEDS: MORPHINE SULF INJ 2 MG/ML SYRINGE 1ML IV PRN ×2 (05:50→13:52)
[2020-10-06] MEDS: CLINDAMYCIN 900MG IV 50 ML IV SCH (05:50)
[2020-10-06 06:00] VITALS: BP 146/76
[2020-10-06] MEDS: InsuLIN REG 1unit/0.01ml Soln (100units/ml) SC SCH ×4 (06:03→22:25)
[2020-10-06] MEDS ORDERED: SUCCINYLCHOLINE CHLORIDE 20 MG/ML 10ML VIAL IV ONE (07:00)
[2020-10-06] MEDS ORDERED: LIDOCAINE 1% HCL (LOCAL ANESTH.) INJ 20ML MDV ONE (07:00)
[2020-10-06] MEDS ORDERED: KETAMINE HCL 10 ML ONE (07:04)
[2020-10-06] MEDS ORDERED: fentaNYL CITRATE 100 MCG/2 ML VL ONE (07:04)
[2020-10-06] MEDS ORDERED: MIDAZOLAM HCL 1MG/1ML-2 ML VIAL ONE (07:04)
[2020-10-06] MEDS ORDERED: ONDANSETRON HCL 4 MG/2 ML VIAL ONE (07:10)
[2020-10-06] MEDS ORDERED: PROPOFOL 10 MG/ML 20 ML IV ONE (07:10)
[2020-10-06] MEDS ORDERED: SODIUM CHLORIDE LOCK 10 ML ONE (07:10)
[2020-10-06] MEDS ORDERED: ACCU-CHEK COMFORT CURVE STRIP VI ONE (08:00)
[2020-10-06] MEDS ORDERED: HYDROmorphone HCL 2 MG/ML VL IV PRN (08:00)
[2020-10-06] MEDS ORDERED: MORPHINE SULFATE 4 MG/ML SYR/VIAL IV PRN (08:00)
[2020-10-06] MEDS ORDERED: METOCLOPRAMIDE HCL 5MG/ml INJ 2ml VIAL IV PRN (08:00)
[2020-10-06 08:06] LABS: Basophils # (auto) 0.1 10 ^3/uL (0-0.2); Basophils % (auto) 1.1 % (0.0-2.0); Eosinophils # (auto) 0.2 10 ^3/uL (0-0.8); Eosinophils % (auto) 2.3 % (0.0-7.0); Hematocrit 43.1 % (36.0-46.0); Hemoglobin 13.9 g/dL (12.2-16.2); Lymphocytes # (auto) 1.4 10 ^3/uL (0.4-5.4); Lymphocytes % (auto) 20.3 % (10.0-50.0); Mean Corpuscular Hgb Conc. 32.3 g/dL (32.0-36.0); Mean Corpuscular Volume 83.8 fL (80.0-100.0); Monocytes # (auto) 0.5 10 ^3/uL (0-1.3); Monocytes % (auto) 7.3 % (0.0-12.0); Neutrophils # (auto) 4.9 10 ^3/uL (1.6-8.6); Platelet Count (auto) 396 10^3/uL (140-450); Red Blood Cells 5.15 10^6/uL (4.0-5.20); Red Cell Distribution Width 15.5 % (11.8-14.3); White Blood Cell 7.1 10^3/uL (4.4-10.8)
[2020-10-06] MEDS: BUPIVACAINE 0.25% INJ 50ML VIAL ONE ×2 (08:14→08:53)
[2020-10-06] MEDS: LIDOCAINE 1% HCL (LOCAL ANESTH.) INJ 20ML MDV ONE ×2 (08:14→08:53)
[2020-10-06 08:26] LABS: BUN/Creatinine Ratio 22.8; Calcium 9.3 mg/dL (8.5-10.1); Potassium 3.8 mmol/L (3.5-5.1)
[2020-10-06] MEDS: DAKINS QUARTER STR 0.125% (NaHypochlorite) 473 ML TOPICAL SOL TOP SCH ×2 (10:00→22:00)
[2020-10-06] MEDS: levoFLOXacin 500MG 100 ML IV SCH (11:07)
[2020-10-06] MEDS: SODIUM CHLORIDE 0.9% 1,000 ML IV SCH ×2 (11:07→22:22)
[2020-10-06] MEDS: FAMOTIDINE 20 MG TAB PO SCH (11:08)
[2020-10-06] MEDS: POTASSIUM CHL 10 Meq TABLET PO SCH (11:08)
[2020-10-06 11:15] VITALS: BP 147/82
[2020-10-06] MEDS: ISOSORBIDE MONONITRATE ER 60 MG TAB PO SCH (11:20)
[2020-10-06] MEDS: METOPROLOL TARTRATE 25 MG TAB PO SCH ×2 (11:20→22:23)
[2020-10-06] MEDS: FUROSEMIDE 40 MG TAB PO SCH (11:20)
[2020-10-06] MEDS: LISINOPRIL 20 MG TAB PO SCH (11:21)
[2020-10-06] MEDS: OMEPRAZOLE 20MG/10ML ORAL SUSP PO SCH ×2 (11:30→11:31)
[2020-10-06] MEDS: CLOTRIMAZOLE 1 % CREAM 15GM TOP SCH ×2 (11:30→22:00)
[2020-10-06 17:00] VITALS: BP 103/60
[2020-10-06] MEDS: AMPICILLIN & SULBACTAM SODIUM 3 GM in SODIUM CHL 0.9% 100 ML IV SCH ×2 (17:53→22:23)
[2020-10-06] MEDS ORDERED: SODIUM CHLORIDE 0.9% 1,000 ML IV ONE (20:00)
[2020-10-06] MEDS ORDERED: HYDROmorphone HCL 2 MG/ML VL IV ONE (20:45)
[2020-10-06 21:17] LABS: Hematocrit 38.6 % (36.0-46.0); Hemoglobin 12.9 g/dL (12.2-16.2)
[2020-10-06 22:00] VITALS: BP 137/75
[2020-10-06] MEDS: ATORVASTATIN 20 MG TAB PO SCH (22:23)
[2020-10-07] MEDS: AMPICILLIN & SULBACTAM SODIUM 3 GM in SODIUM CHL 0.9% 100 ML IV SCH ×4 (03:58→21:27)
[2020-10-07 05:00] VITALS: BP 149/87
[2020-10-07] MEDS: SODIUM CHLORIDE 0.9% 1,000 ML IV SCH ×2 (06:00→16:00)
[2020-10-07 06:15] LABS: Basophils # (auto) 0.1 10 ^3/uL (0-0.2); Basophils % (auto) 0.9 % (0.0-2.0); Eosinophils # (auto) 0.1 10 ^3/uL (0-0.8); Eosinophils % (auto) 1.8 % (0.0-7.0); Hematocrit 39.9 % (36.0-46.0); Hemoglobin 13.4 g/dL (12.2-16.2); Lymphocytes # (auto) 1.2 10 ^3/uL (0.4-5.4); Lymphocytes % (auto) 16.8 % (10.0-50.0); Mean Corpuscular Hgb Conc. 33.6 g/dL (32.0-36.0); Mean Corpuscular Volume 83.2 fL (80.0-100.0); Monocytes # (auto) 0.6 10 ^3/uL (0-1.3); Monocytes % (auto) 8.7 % (0.0-12.0); Neutrophils % (auto) 71.8 % (37.0-80.0); Nucleated Red Blood Cells % 0.1 %; Platelet Count (auto) 363 10^3/uL (140-450); Red Blood Cells 4.79 10^6/uL (4.0-5.20); Red Cell Distribution Width 15.6 % (11.8-14.3); White Blood Cell 6.9 10^3/uL (4.4-10.8)
[2020-10-07 06:26] LABS: Calcium 8.9 mg/dL (8.5-10.1); Potassium 3.9 mmol/L (3.5-5.1)
[2020-10-07 06:31] LABS: BUN/Creatinine Ratio 19.5
[2020-10-07] MEDS: INSULIN LANTUS (GLARGINE) 1 /0.01ml (100units/ml) SC SCH ×2 (06:47→21:28)
[2020-10-07] MEDS: ACCU-CHEK COMFORT CURVE STRIP VI SCH ×4 (06:47→21:29)
[2020-10-07] MEDS: InsuLIN REG 1unit/0.01ml Soln (100units/ml) SC SCH ×4 (06:47→21:28)
[2020-10-07] MEDS: MORPHINE SULF INJ 2 MG/ML SYRINGE 1ML IV PRN ×2 (08:29→12:17)
[2020-10-07 09:03] LABS: INR 1.05 (0.9-1.15); Partial Thromboplastin Time 30.3 sec (23.0-31.2)
[2020-10-07] MEDS ORDERED: IODIXANOL 320MG/ML 100ML BTL IV ONE (09:14)
[2020-10-07] MEDS ORDERED: LIDOCAINE 2%HCL (LOCAL ANESTH.) INJ 20ML MDV ONE (09:14)
[2020-10-07] MEDS ORDERED: diphenhdrAMINE HCL 50 MG/1 ML VL ONE (09:47)
[2020-10-07] MEDS ORDERED: fentaNYL CITRATE 100 MCG/2 ML VL ONE (09:47)
[2020-10-07] MEDS ORDERED: ANGIOMAX 250 MG VIAL IV ONE ×2 (09:47→10:18)
[2020-10-07] MEDS ORDERED: SODIUM CHL 0.9% 50 ML ONE ×2 (09:48→10:18)
[2020-10-07] MEDS ORDERED: MIDAZOLAM HCL 1MG/1ML-2 ML VIAL ONE (09:48)
[2020-10-07] MEDS: DAKINS QUARTER STR 0.125% (NaHypochlorite) 473 ML TOPICAL SOL TOP SCH ×2 (10:00→21:29)
[2020-10-07] MEDS: FAMOTIDINE 20 MG TAB PO SCH (10:00)
[2020-10-07] MEDS: POTASSIUM CHL 10 Meq TABLET PO SCH (10:00)
[2020-10-07] MEDS: FUROSEMIDE 40 MG TAB PO SCH (10:00)
[2020-10-07] MEDS: OMEPRAZOLE 20MG/10ML ORAL SUSP PO SCH (10:00)
[2020-10-07] MEDS: CLOTRIMAZOLE 1 % CREAM 15GM TOP SCH ×2 (10:00→21:29)
[2020-10-07] MEDS ORDERED: VERAPAMIL 2.5MG/ML INJ 2ML VIAL IV ONE (10:06)
[2020-10-07] MEDS ORDERED: NITROGLYCERIN 5MG/ML 10ML VIAL IV ONE (10:06)
[2020-10-07] MEDS ORDERED: CLOPIDOGREL BISULFATE 75 MG TAB ONE (10:48)
[2020-10-07] MEDS ORDERED: ASPirin 81 mg TAB ONE (10:48)
[2020-10-07] MEDS ORDERED: hydrALAZINE HCL 20 MG/ML VL ONE (11:57)
[2020-10-07] MEDS ORDERED: hydrALAZINE HCL 10 MG TAB PO PRN (12:15)
[2020-10-07] MEDS: ISOSORBIDE MONONITRATE ER 60 MG TAB PO SCH (12:28)
[2020-10-07] MEDS: METOPROLOL TARTRATE 25 MG TAB PO SCH ×2 (12:29→21:28)
[2020-10-07] MEDS: LISINOPRIL 20 MG TAB PO SCH (12:30)
[2020-10-07] MEDS: HYDROcodone-ACET 10/325MG TAB PO PRN (14:30)
[2020-10-07] MEDS: amLODIPine BESYLATE 5 MG TAB PO SCH (15:15)
[2020-10-07] MEDS ORDERED: hydrALAZINE HCL 20 MG/ML VL IV ONE (15:15)
[2020-10-07] MEDS ORDERED: HYDROcodone-ACET 10/325MG TAB PO PRN ×3 (15:15→15:30)
[2020-10-07] MEDS ORDERED: LIDOCAINE 1% (LOCAL ANESTH.) PF 5ml SDV ID ONE (17:15)
[2020-10-07] MEDS ORDERED: MORPHINE SULF INJ 2 MG/ML SYRINGE 1ML IV ONE (18:45)
[2020-10-07] MEDS ORDERED: METOPROLOL TARTRATE 1MG/1ML-5ML VIAL IV ONE (18:45)
[2020-10-07] MEDS: SODIUM CHLOR 0.9% PF (SALINE LOCK) 10ML VIAL/SYR IV SCH (21:27)
[2020-10-07] MEDS: ATORVASTATIN 20 MG TAB PO SCH (21:28)
[2020-10-08] VITALS (7 sets, daily range): BP systolic 119–165; BP diastolic 51–98
[2020-10-08] MEDS: MORPHINE SULF INJ 2 MG/ML SYRINGE 1ML IV PRN ×4 (01:39→15:38)
[2020-10-08] MEDS: SODIUM CHLORIDE 0.9% 1,000 ML IV SCH ×2 (02:08→12:00)
[2020-10-08] MEDS: AMPICILLIN & SULBACTAM SODIUM 3 GM in SODIUM CHL 0.9% 100 ML IV SCH ×3 (03:23→16:06)
[2020-10-08] MEDS: ACCU-CHEK COMFORT CURVE STRIP VI SCH ×3 (05:41→19:02)
[2020-10-08] MEDS: INSULIN LANTUS (GLARGINE) 1 /0.01ml (100units/ml) SC SCH (05:41)
[2020-10-08] MEDS: InsuLIN REG 1unit/0.01ml Soln (100units/ml) SC SCH ×3 (05:42→18:21)
[2020-10-08 07:11] LABS: Basophils # (auto) 0.1 10 ^3/uL (0-0.2); Basophils % (auto) 0.7 % (0.0-2.0); Eosinophils # (auto) 0.1 10 ^3/uL (0-0.8); Eosinophils % (auto) 1.4 % (0.0-7.0); Hematocrit 37.9 % (36.0-46.0); Hemoglobin 12.8 g/dL (12.2-16.2); Lymphocytes # (auto) 1.2 10 ^3/uL (0.4-5.4); Lymphocytes % (auto) 15.9 % (10.0-50.0); Mean Corpuscular Hgb Conc. 33.9 g/dL (32.0-36.0); Mean Corpuscular Volume 82.6 fL (80.0-100.0); Monocytes # (auto) 0.7 10 ^3/uL (0-1.3); Neutrophils # (auto) 5.6 10 ^3/uL (1.6-8.6); Nucleated Red Blood Cells % 0.2 %; Platelet Count (auto) 281 10^3/uL (140-450); Red Blood Cells 4.59 10^6/uL (4.0-5.20); Red Cell Distribution Width 15.5 % (11.8-14.3); White Blood Cell 7.7 10^3/uL (4.4-10.8)
[2020-10-08 07:33] LABS: Calcium 8.9 mg/dL (8.5-10.1); Potassium 3.9 mmol/L (3.5-5.1)
[2020-10-08 07:36] LABS: BUN/Creatinine Ratio 16.7
[2020-10-08] MEDS: OMEPRAZOLE 20MG/10ML ORAL SUSP PO SCH (10:00)
[2020-10-08] MEDS: FUROSEMIDE 40 MG TAB PO SCH (10:32)
[2020-10-08] MEDS: POTASSIUM CHL 10 Meq TABLET PO SCH (10:33)
[2020-10-08] MEDS: ISOSORBIDE MONONITRATE ER 60 MG TAB PO SCH (10:33)
[2020-10-08] MEDS: FAMOTIDINE 20 MG TAB PO SCH (10:33)
[2020-10-08] MEDS: CLOPIDOGREL BISULFATE 75 MG TAB PO SCH (10:34)
[2020-10-08] MEDS: METOPROLOL TARTRATE 25 MG TAB PO SCH (10:34)
[2020-10-08] MEDS: amLODIPine BESYLATE 5 MG TAB PO SCH (10:35)
[2020-10-08] MEDS: LISINOPRIL 20 MG TAB PO SCH (10:36)
[2020-10-08] MEDS: DAKINS QUARTER STR 0.125% (NaHypochlorite) 473 ML TOPICAL SOL TOP SCH (11:05)
[2020-10-08] MEDS: SODIUM CHLOR 0.9% PF (SALINE LOCK) 10ML VIAL/SYR IV SCH (11:05)
[2020-10-08] MEDS: CLOTRIMAZOLE 1 % CREAM 15GM TOP SCH (11:06)
== END 2020-10-08 19:00 | DRG 305 ==
LOC: EDBD 21:47 → ER 21:57 → TELE 21:58 → TELE-WESTW 10-03 08:30
PROVIDERS: ADMIT Nurse Practitioner Family; ATTEND Hospitalist
PROC: 0Y6N0ZF Detachment at Left Foot, Partial 5th Ray, Open Approach (ICD-10-PCS; 2020-10-06)
PROC: B41F1ZZ Fluoroscopy of Right Lower Extremity Arteries using Low Osmolar Contrast (ICD-10-PCS; principal; 2020-10-07)
PROC: B41G1ZZ Fluoroscopy of Left Lower Extremity Arteries using Low Osmolar Contrast (ICD-10-PCS; 2020-10-07)
PROC: 04CQ3ZZ Extirpation of Matter from Left Anterior Tibial Artery, Percutaneous Approach (ICD-10-PCS; 2020-10-07)
PROC: 047Q3ZZ Dilation of Left Anterior Tibial Artery, Percutaneous Approach (ICD-10-PCS; 2020-10-07)
DX: E11.69 Type 2 diabetes mellitus with other specified complication (principal); M86.172 Other acute osteomyelitis, left ankle and foot; J96.11 Chronic respiratory failure with hypoxia; E11.65 Type 2 diabetes mellitus with hyperglycemia; E66.01 Morbid (severe) obesity due to excess calories; I50.42 Chronic combined systolic (congestive) and diastolic (congestive) heart failure; E87.1 Hypo-osmolality and hyponatremia; I11.0 Hypertensive heart disease with heart failure; E11.52 Type 2 diabetes mellitus with diabetic peripheral angiopathy with gangrene; I25.10 Atherosclerotic heart disease of native coronary artery without angina pectoris; N39.0 Urinary tract infection, site not specified; E78.5 Hyperlipidemia, unspecified; L03.116 Cellulitis of left lower limb; F17.210 Nicotine dependence, cigarettes, uncomplicated; Z68.37 Body mass index [BMI] 37.0-37.9, adult; B35.9 Dermatophytosis, unspecified; L97.429 Non-pressure chronic ulcer of left heel and midfoot with unspecified severity; F15.10 Other stimulant abuse, uncomplicated; G89.29 Other chronic pain; E11.621 Type 2 diabetes mellitus with foot ulcer; M19.90 Unspecified osteoarthritis, unspecified site; Z20.828 Contact with and (suspected) exposure to other viral communicable diseases; Z75.1 Person awaiting admission to adequate facility elsewhere; Z79.4 Long term (current) use of insulin; Z82.49 Family history of ischemic heart disease and other diseases of the circulatory system; Z83.3 Family history of diabetes mellitus; Z86.73 Personal history of transient ischemic attack (TIA), and cerebral infarction without residual deficits; Z91.19 Patient's noncompliance with other medical treatment and regimen; Z88.6 Allergy status to analgesic agent
CPT/HCPCS: 36415; 36569; 71045; 73700; 73718; 80048; 80053; 80307; 81001; 82010; 82962; 83605; 84702; 85014; 85018; 85025; 85610; 85730; 86141; 86850; 86900; 86901; 87040; 87070; 87075; 87077; 87081; 87205; 87426; 93005; 93306; 93923; 96365; 96368; 96375; 99152; 99153; C1724; G0378; J0330; J0696; J1815; J1956; J2001; J2250; J2405; J2704; J3490; Q9967

== ENCOUNTER 2021-04-08 23:13 | Emergency (ER) | payer MEDICAID ==
[~2021-04-08] VITALS: Ht 177.8 cm; Wt 90.7 kg
[~2021-04-08 23:13] MED LIST changes: +AMLO-496 PO; -AMLO10TA13 PO; -CLOP75TA41 PO; +CLOP75TA70 PO; -LISI-646 PO; +LISI20TA28 PO; +POTA-264 PO; -POTA10TA75 PO
[2021-04-08 23:56] LABS: Basophils # (auto) 0.1 10 ^3/uL (0-0.2); Basophils % (auto) 0.9 % (0.0-2.0); Eosinophils # (auto) 0.2 10 ^3/uL (0-0.8); Eosinophils % (auto) 2.1 % (0.0-7.0); Hematocrit 43.7 % (36.0-46.0); Hemoglobin 15.1 g/dL (12.2-16.2); Lymphocytes # (auto) 1.5 10 ^3/uL (0.4-5.4); Lymphocytes % (auto) 17.4 % (10.0-50.0); Mean Corpuscular Hemoglobin 32.5 pg (28.0-32.0); Mean Corpuscular Hgb Conc. 34.6 g/dL (32.0-36.0); Mean Corpuscular Volume 94.1 fL (80.0-100.0); Monocytes # (auto) 0.8 10 ^3/uL (0-1.3); Monocytes % (auto) 9.2 % (0.0-12.0); Neutrophils # (auto) 5.9 10 ^3/uL (1.6-8.6); Neutrophils % (auto) 70.4 % (37.0-80.0); Nucleated Red Blood Cells % 0.9 %; Platelet Count (auto) 252 10^3/uL (140-450); Red Blood Cells 4.64 10^6/uL (4.0-5.20); Red Cell Distribution Width 14.5 % (11.8-14.3); White Blood Cell 8.4 10^3/uL (4.4-10.8)
[2021-04-09 00:10] LABS: INR 1.01 (0.9-1.15); Partial Thromboplastin Time 25.5 sec (23.0-31.2)
[2021-04-09 00:15] LABS: Albumin 3.3 g/dL (3.4-5.0); Calcium 8.5 mg/dL (8.5-10.1); Potassium 3.8 mmol/L (3.5-5.1)
[2021-04-09 00:17] LABS: Bilirubin, Total 0.5 mg/dL (0.2-1.0); Total Protein 7.9 g/dL (6.4-8.2)
[2021-04-09] MEDS ORDERED: VANCOMYCIN 1GM/250ML 250 ML IV ONE (06:15)
[2021-04-09] MEDS ORDERED: IOHEXOL 350 MG/ML 100ML IJ ONE (06:28)
[2021-04-09] MEDS ORDERED: DOXY-346 PO (08:50)
[2021-04-09 09:00] VITALS: BP 167/95
== END 2021-04-09 09:40 | disposition home or self-care (01) ==
LOC: EDBD 23:13 → ER 23:18
DX: L03.90 Cellulitis, unspecified (principal); I73.9 Peripheral vascular disease, unspecified; F17.210 Nicotine dependence, cigarettes, uncomplicated; I25.10 Atherosclerotic heart disease of native coronary artery without angina pectoris; I11.0 Hypertensive heart disease with heart failure; I50.9 Heart failure, unspecified; E11.9 Type 2 diabetes mellitus without complications; Z79.82 Long term (current) use of aspirin; Z79.899 Other long term (current) drug therapy; Z79.4 Long term (current) use of insulin; Z88.8 Allergy status to other drugs, medicaments and biological substances; Z20.822 Contact with and (suspected) exposure to COVID-19
CPT/HCPCS: 36415; 71045; 73706; 80053; 83605; 83880; 84484; 85025; 85610; 85652; 85730; 86141; 87040; 87426; 93005; 93971; 96365; 99285; J3370; Q9967

== ENCOUNTER 2022-05-07 20:43 | Inpatient (IN) | payer MEDICAID ==
[~2022-05-07] VITALS: Ht 175.3 cm; Wt 109.5 kg
[~2022-05-07 20:43] MED LIST changes: +DOXY-346 PO
[2022-05-07 21:28] LABS: Basophils # (auto) 0.1 10 ^3/uL (0-0.2); Basophils % (auto) 1.5 % (0.0-2.0); Eosinophils # (auto) 0.1 10 ^3/uL (0-0.8); Eosinophils % (auto) 2.1 % (0.0-7.0); Hematocrit 40.5 % (36.0-46.0); Hemoglobin 13.9 g/dL (12.2-16.2); Lymphocytes # (auto) 1.4 10 ^3/uL (0.4-5.4); Lymphocytes % (auto) 19.4 % (10.0-50.0); Mean Corpuscular Hemoglobin 29.8 pg (28.0-32.0); Mean Corpuscular Hgb Conc. 34.2 g/dL (32.0-36.0); Mean Corpuscular Volume 87.1 fL (80.0-100.0); Monocytes # (auto) 0.5 10 ^3/uL (0-1.3); Monocytes % (auto) 7.5 % (0.0-12.0); Neutrophils # (auto) 4.9 10 ^3/uL (1.6-8.6); Neutrophils % (auto) 69.5 % (37.0-80.0); Nucleated Red Blood Cells % 0.1 %; Red Blood Cells 4.66 10^6/uL (4.0-5.20); Red Cell Distribution Width 16.3 % (11.8-14.3); White Blood Cell 7.1 10^3/uL (4.4-10.8)
[2022-05-07] MEDS ORDERED: VANCOMYCIN 1GM/250ML 250 ML IV ONE (21:30)
[2022-05-07] MEDS ORDERED: PIPERACILLIN-TAZO 4.5GM 100 ML IV ONE (21:30)
[2022-05-07 21:44] LABS: Albumin 2.9 g/dL (3.4-5.0); Calcium 8.7 mg/dL (8.5-10.1); Potassium 3.6 mmol/L (3.5-5.1)
[2022-05-07] MEDS ORDERED: MORPHINE SULFATE 4 MG/ML SYR/VIAL IV ONE (21:45)
[2022-05-07 21:46] LABS: Bilirubin, Total 0.4 mg/dL (0.2-1.0); Total Protein 7.3 g/dL (6.4-8.2)
[2022-05-07 21:49] LABS: Lactic Acid w/Reflex 3.4 mmol/L (0.4-2.0)
[2022-05-07 22:02] LABS: BUN/Creatinine Ratio 15.7
[2022-05-07] MEDS ORDERED: InsuLIN REG 1unit/0.01ml Soln (100units/ml) IV ONE (23:00)
[2022-05-08] MEDS ORDERED: VANCOMYCIN PER PHARMACY 0 MG IV SCH
[2022-05-08] MEDS ORDERED: ACETAMINOPHEN 325 MG TAB PO PRN
[2022-05-08] MEDS ORDERED: ONDANSETRON HCL 4 MG/2 ML VIAL IV PRN
[2022-05-08] MEDS ORDERED: DEXTROSE (50%) 50ML SYRG IV PRN ×2 (00:30→23:45)
[2022-05-08 06:04] LABS: Basophils # (auto) 0.2 10 ^3/uL (0-0.2); Eosinophils # (auto) 0.3 10 ^3/uL (0-0.8); Eosinophils % (auto) 4.3 % (0.0-7.0); Hematocrit 40.8 % (36.0-46.0); Hemoglobin 14.1 g/dL (12.2-16.2); Lymphocytes # (auto) 1.2 10 ^3/uL (0.4-5.4); Lymphocytes % (auto) 18.7 % (10.0-50.0); Mean Corpuscular Hemoglobin 30.1 pg (28.0-32.0); Mean Corpuscular Hgb Conc. 34.5 g/dL (32.0-36.0); Mean Corpuscular Volume 87.1 fL (80.0-100.0); Monocytes # (auto) 0.6 10 ^3/uL (0-1.3); Monocytes % (auto) 9.5 % (0.0-12.0); Neutrophils % (auto) 64.5 % (37.0-80.0); Nucleated Red Blood Cells % 0.1 %; Red Blood Cells 4.69 10^6/uL (4.0-5.20); Red Cell Distribution Width 16.4 % (11.8-14.3); White Blood Cell 6.2 10^3/uL (4.4-10.8)
[2022-05-08 06:22] LABS: Calcium 8.5 mg/dL (8.5-10.1); Potassium 3.3 mmol/L (3.5-5.1)
[2022-05-08] MEDS: InsuLIN REG 1unit/0.01ml Soln (100units/ml) SC SCH ×4 (06:30→20:49)
[2022-05-08] MEDS: PIPERACILLIN-TAZOB 3.375GM 100 ML IV SCH ×3 (06:30→20:44)
[2022-05-08] MEDS: ACCU-CHEK COMFORT CURVE STRIP VI SCH ×4 (06:34→20:44)
[2022-05-08] MEDS: MORPHINE SULFATE INJ 2 MG/ml SYRG IV PRN ×3 (07:11→22:26)
[2022-05-08] MEDS ORDERED: POTASSIUM CHL 20 Meq TABLET PO ONE (07:30)
[2022-05-08] MEDS: hydrALAZINE HCL 10 MG TAB PO PRN ×2 (08:29→21:09)
[2022-05-08] MEDS: FAMOTIDINE 20 MG TAB PO SCH ×2 (09:57→20:40)
[2022-05-08] MEDS: HYDROcodone-ACET 5/325MG TAB PO PRN ×2 (09:57→20:43)
[2022-05-08] MEDS: VANCOMYCIN 1GM/250ML 250 ML IV SCH (12:08)
[2022-05-08 12:13] LABS: Urine Bacteria NONE SEEN /hpf (None Seen); Urine Blood Negative /uL (Negative); Urine Specific Gravity 1.018 (1.001-1.035); Urine WBC 190 /hpf (0 - 5)
[2022-05-08 16:51] VITALS: BP 172/102
[2022-05-08 17:00] VITALS: BP 172/102
[2022-05-08 20:00] VITALS: BP 151/101
[2022-05-08 21:29] VITALS: BP 157/101
[2022-05-09] MEDS: VANCOMYCIN 1GM/250ML 250 ML IV SCH ×2 (00:57→12:06)
[2022-05-09] MEDS: INSULIN LANTUS (GLARGINE) 1 /0.01ml (100units/ml) SC SCH ×2 (01:28→23:33)
[2022-05-09 04:40] VITALS: BP 181/99
[2022-05-09] MEDS: MORPHINE SULFATE INJ 2 MG/ml SYRG IV PRN ×4 (06:17→23:24)
[2022-05-09] MEDS: PIPERACILLIN-TAZOB 3.375GM 100 ML IV SCH ×4 (06:17→23:22)
[2022-05-09] MEDS: InsuLIN REG 1unit/0.01ml Soln (100units/ml) SC SCH ×4 (06:50→23:34)
[2022-05-09] MEDS: ACCU-CHEK COMFORT CURVE STRIP VI SCH ×4 (07:00→23:29)
[2022-05-09 09:00] VITALS: BP 164/89
[2022-05-09] MEDS: FAMOTIDINE 20 MG TAB PO SCH ×3 (09:38→23:29)
[2022-05-09] MEDS: HYDROcodone-ACET 5/325MG TAB PO PRN (12:19)
[2022-05-09 13:00] VITALS: BP 167/91
[2022-05-09 13:05] LABS: Basophils # (auto) 0.1 10 ^3/uL (0-0.2); Basophils % (auto) 1.3 % (0.0-2.0); Eosinophils # (auto) 0.2 10 ^3/uL (0-0.8); Eosinophils % (auto) 2.4 % (0.0-7.0); Hematocrit 41.2 % (36.0-46.0); Hemoglobin 14.1 g/dL (12.2-16.2); Lymphocytes # (auto) 1.2 10 ^3/uL (0.4-5.4); Lymphocytes % (auto) 18.2 % (10.0-50.0); Mean Corpuscular Hemoglobin 29.7 pg (28.0-32.0); Mean Corpuscular Hgb Conc. 34.1 g/dL (32.0-36.0); Mean Corpuscular Volume 86.9 fL (80.0-100.0); Monocytes # (auto) 0.4 10 ^3/uL (0-1.3); Monocytes % (auto) 6.6 % (0.0-12.0); Neutrophils # (auto) 4.8 10 ^3/uL (1.6-8.6); Neutrophils % (auto) 71.5 % (37.0-80.0); Nucleated Red Blood Cells % 0.1 %; Red Blood Cells 4.74 10^6/uL (4.0-5.20); Red Cell Distribution Width 16.2 % (11.8-14.3); White Blood Cell 6.8 10^3/uL (4.4-10.8)
[2022-05-09 13:23] LABS: BUN/Creatinine Ratio 13.5; Calcium 8.8 mg/dL (8.5-10.1); Potassium 3.9 mmol/L (3.5-5.1)
[2022-05-09] MEDS: hydrALAZINE HCL 10 MG TAB PO PRN (15:09)
[2022-05-09 17:00] VITALS: BP 140/73
[2022-05-09 22:00] VITALS: BP 155/78
[2022-05-10] MEDS: HYDROcodone-ACET 5/325MG TAB PO PRN ×3 (00:24→17:17)
[2022-05-10] MEDS: VANCOMYCIN 1GM/250ML 250 ML IV SCH ×2 (02:49→11:54)
[2022-05-10 05:00] VITALS: BP 199/127
[2022-05-10] MEDS: PIPERACILLIN-TAZOB 3.375GM 100 ML IV SCH (05:25)
[2022-05-10] MEDS: MORPHINE SULFATE INJ 2 MG/ml SYRG IV PRN ×3 (05:26→18:16)
[2022-05-10 05:45] LABS: Basophils # (auto) 0.1 10 ^3/uL (0-0.2); Eosinophils # (auto) 0.2 10 ^3/uL (0-0.8); Eosinophils % (auto) 4.2 % (0.0-7.0); Hematocrit 46.1 % (36.0-46.0); Hemoglobin 15.6 g/dL (12.2-16.2); Lymphocytes # (auto) 1.7 10 ^3/uL (0.4-5.4); Lymphocytes % (auto) 30.1 % (10.0-50.0); Mean Corpuscular Hemoglobin 29.7 pg (28.0-32.0); Mean Corpuscular Hgb Conc. 33.7 g/dL (32.0-36.0); Mean Corpuscular Volume 88.1 fL (80.0-100.0); Monocytes # (auto) 0.6 10 ^3/uL (0-1.3); Monocytes % (auto) 10.8 % (0.0-12.0); Neutrophils % (auto) 53.9 % (37.0-80.0); Nucleated Red Blood Cells % 0.3 %; Red Blood Cells 5.23 10^6/uL (4.0-5.20); Red Cell Distribution Width 16.4 % (11.8-14.3); White Blood Cell 5.6 10^3/uL (4.4-10.8)
[2022-05-10 06:05] LABS: Anion Gap 8 (5-15); BUN/Creatinine Ratio 14.1; Blood Urea Nitrogen 13 mg/dL (7-18); Calcium 8.9 mg/dL (8.5-10.1); Carbon Dioxide 26 mmol/L (21-32); Chloride 99 mmol/L (98-107); GFR African American 82 mL/min; GFR Non-African American 68 mL/min; Glucose 198 mg/dL (74-106); Potassium 4.1 mmol/L (3.5-5.1); Sodium 133 mmol/L (136-145)
[2022-05-10] MEDS: ACCU-CHEK COMFORT CURVE STRIP VI SCH ×4 (06:07→22:16)
[2022-05-10] MEDS: hydrALAZINE HCL 10 MG TAB PO PRN (06:08)
[2022-05-10] MEDS: InsuLIN REG 1unit/0.01ml Soln (100units/ml) SC SCH ×4 (06:08→22:23)
[2022-05-10 07:06] VITALS: BP 170/86
[2022-05-10] MEDS ORDERED: LIDOCAINE 2%HCL (LOCAL ANESTH.) INJ 10ml MDV ONE (08:49)
[2022-05-10 09:00] VITALS: BP 200/98
[2022-05-10] MEDS ORDERED: hydrALAZINE HCL 20 MG/ML VL IV ONE (10:00)
[2022-05-10] MEDS: FAMOTIDINE 20 MG TAB PO SCH ×2 (10:03→22:15)
[2022-05-10] MEDS: NICOTINE 21MG/24 HR TOPICAL PATCH TD SCH (10:04)
[2022-05-10] MEDS: METOPROLOL TARTRATE 25 MG TAB PO SCH ×2 (11:37→22:16)
[2022-05-10] MEDS: FUROSEMIDE 40 MG TAB PO SCH (11:37)
[2022-05-10] MEDS: amLODIPine BESYLATE 5 MG TAB PO SCH (11:37)
[2022-05-10 13:00] VITALS: BP 164/101
[2022-05-10] MEDS ORDERED: INSU1INJ19 SC (16:14)
[2022-05-10] MEDS ORDERED: LISI20TA28 PO (16:14)
[2022-05-10] MEDS ORDERED: FURO40TA4 PO (16:14)
[2022-05-10] MEDS ORDERED: CLIN300C8 PO (16:14)
[2022-05-10] MEDS ORDERED: POTA-264 PO (16:14)
[2022-05-10] MEDS ORDERED: MET25T PO (16:14)
[2022-05-10] MEDS ORDERED: ATOR40TA52 PO (16:14)
[2022-05-10] MEDS ORDERED: ASPI-318 PO (16:14)
[2022-05-10] MEDS ORDERED: AMLO-496 PO (16:14)
[2022-05-10] MEDS ORDERED: INSREGI SC (16:19)
[2022-05-10] MEDS ORDERED: ISO60SRT PO (16:20)
[2022-05-10 17:00] VITALS: BP 165/67
[2022-05-10] MEDS: LISINOPRIL 20 MG TAB PO SCH (17:39)
[2022-05-10] MEDS: CLINDAMYCIN HCL 150 MG CAP PO SCH (22:16)
[2022-05-10] MEDS: INSULIN LANTUS (GLARGINE) 1 /0.01ml (100units/ml) SC SCH (22:17)
[2022-05-11 00:46] VITALS: BP 143/80
[2022-05-11] MEDS: MORPHINE SULFATE INJ 2 MG/ml SYRG IV PRN ×3 (02:18→16:45)
[2022-05-11] MEDS: HYDROcodone-ACET 5/325MG TAB PO PRN ×2 (04:33→14:51)
[2022-05-11 04:47] VITALS: BP 172/100
[2022-05-11] MEDS: hydrALAZINE HCL 10 MG TAB PO PRN ×2 (05:02→14:09)
[2022-05-11] MEDS: ACCU-CHEK COMFORT CURVE STRIP VI SCH ×2 (06:12→13:38)
[2022-05-11] MEDS: CLINDAMYCIN HCL 150 MG CAP PO SCH ×2 (06:12→14:09)
[2022-05-11 06:27] LABS: BUN/Creatinine Ratio 21.1; Calcium 9.1 mg/dL (8.5-10.1); Potassium 3.6 mmol/L (3.5-5.1)
[2022-05-11] MEDS: InsuLIN REG 1unit/0.01ml Soln (100units/ml) SC SCH ×3 (06:30→17:42)
[2022-05-11 09:00] VITALS: BP 158/94
[2022-05-11] MEDS: FAMOTIDINE 20 MG TAB PO SCH (10:03)
[2022-05-11] MEDS: LISINOPRIL 20 MG TAB PO SCH (10:03)
[2022-05-11] MEDS: FUROSEMIDE 40 MG TAB PO SCH (10:03)
[2022-05-11] MEDS: amLODIPine BESYLATE 5 MG TAB PO SCH (10:04)
[2022-05-11] MEDS: METOPROLOL TARTRATE 25 MG TAB PO SCH (10:04)
[2022-05-11] MEDS: NICOTINE 21MG/24 HR TOPICAL PATCH TD SCH (10:04)
[2022-05-11 13:00] VITALS: BP 161/88
[2022-05-11 17:16] VITALS: BP 161/83
== END 2022-05-11 18:05 | disposition home health service (06) | DRG 349 ==
LOC: EDBD 20:43 → ER 20:43 → TELE 23:49 → TELE-WESTW 05-08 14:57 → TELE-EAST 05-09 15:44
PROVIDERS: ADMIT Nurse Practitioner Family; ATTEND Nurse Practitioner Family
DX: T87.44 Infection of amputation stump, left lower extremity (principal); I11.0 Hypertensive heart disease with heart failure; I50.9 Heart failure, unspecified; L03.115 Cellulitis of right lower limb; E11.65 Type 2 diabetes mellitus with hyperglycemia; F17.210 Nicotine dependence, cigarettes, uncomplicated; Z20.822 Contact with and (suspected) exposure to COVID-19; L03.116 Cellulitis of left lower limb; E66.01 Morbid (severe) obesity due to excess calories; Y83.5 Amputation of limb(s) as the cause of abnormal reaction of the patient, or of later complication, without mention of misadventure at the time of the procedure; I25.10 Atherosclerotic heart disease of native coronary artery without angina pectoris; Z79.4 Long term (current) use of insulin; Z79.84 Long term (current) use of oral hypoglycemic drugs; Z79.899 Other long term (current) drug therapy; Z82.49 Family history of ischemic heart disease and other diseases of the circulatory system; Z83.3 Family history of diabetes mellitus; Z86.73 Personal history of transient ischemic attack (TIA), and cerebral infarction without residual deficits; Z89.512 Acquired absence of left leg below knee; Z88.8 Allergy status to other drugs, medicaments and biological substances; Y92.89 Other specified places as the place of occurrence of the external cause; Z89.511 Acquired absence of right leg below knee; Z68.33 Body mass index [BMI] 33.0-33.9, adult
CPT/HCPCS: 36415; 73590; 73700; 80048; 80053; 80202; 81001; 82010; 82962; 83036; 83605; 85025; 87040; 87077; 87186; 87205; 96365; 96367; 96375; G0378; J1815; J2001; J2543

== ENCOUNTER → 2022-12-31 | Emergency (ER) | payer SELFPAY ==
[~2022-12-31] VITALS: Ht 175.3 cm; Wt 104.5 kg
[~2022-12-31] MED LIST changes: -CARI350T23 PO; -CHOL1TAB42 PO; +CLIN300C8 PO; -CLOP75TA70 PO; -CLOT1CRE56 TOP; -DOXY-346 PO; -FERR-20 PO; -GLYB5TAB8 PO; +INSREGI SC; -INSU100I2 SC; -NITR0.4S29 SL; -OMEP-260 PO; +cloNIDine HCL 0.1 MG TAB PO ONE
[2022-12-31 16:40] VITALS: BP 183/106
[2022-12-31 17:48] LABS: Albumin 3.7 g/dL (3.4-5.0); Calcium 9.4 mg/dL (8.5-10.1)
[2022-12-31 17:57] LABS: BUN/Creatinine Ratio 22.1; Bilirubin, Total 0.7 mg/dL (0.2-1.0); CRP High Sensitivity 3.73 mg/dL (< 0.3); Total Protein 8.7 g/dL (6.4-8.2)
== END | disposition left against medical advice (07) ==
LOC: ER 16:16
DX: L03.115 Cellulitis of right lower limb (principal); I11.0 Hypertensive heart disease with heart failure; E11.9 Type 2 diabetes mellitus without complications; I25.10 Atherosclerotic heart disease of native coronary artery without angina pectoris; F17.210 Nicotine dependence, cigarettes, uncomplicated; F15.90 Other stimulant use, unspecified, uncomplicated; Z98.890 Other specified postprocedural states; Z88.6 Allergy status to analgesic agent; Z79.899 Other long term (current) drug therapy; Z86.73 Personal history of transient ischemic attack (TIA), and cerebral infarction without residual deficits; Z53.29 Procedure and treatment not carried out because of patient's decision for other reasons
CPT/HCPCS: 36415; 80053; 83605; 83735; 83880; 86141; 87040

== ENCOUNTER 2023-05-21 00:26 | Emergency (ER) | payer MEDICAID ==
[~2023-05-21] VITALS: Ht 175.3 cm; Wt 104.5 kg
[~2023-05-21 00:26] MED LIST changes: -AMLO-496 PO; +AMLO1TAB23 PO; -ASPI-318 PO; +ASPI-764 PO; +CLIN300C70 PO; -CLIN300C8 PO; -LISI20TA28 PO; +LISI20TA56 PO; -cloNIDine HCL 0.1 MG TAB PO ONE
[2023-05-21 02:39] LABS: Basophils # (auto) 0.1 10 ^3/uL (0-0.2); Basophils % (auto) 0.9 % (0.0-2.0); Eosinophils # (auto) 0.3 10 ^3/uL (0-0.8); Eosinophils % (auto) 2.1 % (0.0-7.0); Hematocrit 46.4 % (36.0-46.0); Hemoglobin 15.5 g/dL (12.2-16.2); Lymphocytes # (auto) 1.5 10 ^3/uL (0.4-5.4); Lymphocytes % (auto) 11.9 % (10.0-50.0); Mean Corpuscular Hemoglobin 29.1 pg (28.0-32.0); Mean Corpuscular Hgb Conc. 33.4 g/dL (32.0-36.0); Mean Corpuscular Volume 87.1 fL (80.0-100.0); Monocytes # (auto) 0.9 10 ^3/uL (0-1.3); Monocytes % (auto) 6.8 % (0.0-12.0); Neutrophils # (auto) 9.8 10 ^3/uL (1.6-8.6); Neutrophils % (auto) 78.3 % (37.0-80.0); Nucleated Red Blood Cells % 0.6 %; Red Blood Cells 5.33 10^6/uL (4.0-5.20); Red Cell Distribution Width 15.8 % (11.8-14.3); White Blood Cell 12.5 10^3/uL (4.4-10.8)
[2023-05-21 02:52] LABS: Potassium 4.1 mmol/L (3.5-5.1)
[2023-05-21 02:54] LABS: BUN/Creatinine Ratio 20.4 (10.0-20.0)
[2023-05-21 02:57] LABS: Bilirubin, Total 0.7 mg/dL (0.2-1.0)
[2023-05-21 05:52] LABS: INR 1.08 (0.9-1.15); Partial Thromboplastin Time 34.8 SEC (24.5-34.5)
[2023-05-21 08:31] VITALS: BP 182/101
== END 2023-05-21 08:37 | disposition left against medical advice (07) ==
LOC: ER 00:26
DX: L03.115 Cellulitis of right lower limb (principal); F17.210 Nicotine dependence, cigarettes, uncomplicated; F15.10 Other stimulant abuse, uncomplicated; I11.0 Hypertensive heart disease with heart failure; I50.9 Heart failure, unspecified; E11.9 Type 2 diabetes mellitus without complications; Z86.73 Personal history of transient ischemic attack (TIA), and cerebral infarction without residual deficits; Z88.8 Allergy status to other drugs, medicaments and biological substances
CPT/HCPCS: 36415; 73630; 80053; 82962; 83605; 84484; 85025; 85379; 85610; 85652; 85730; 87040; 93971